=== PATIENT | male | born 2005 | race Caucasian/White ===

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

== ENCOUNTER 2023-08-18 10:16 | Day surgery (SDC) | payer BC ==
[2023-08-18] MEDS ORDERED: Acetaminophen 325 MG TAB ONE (11:43)
[2023-08-18] MEDS: Acetaminophen 325 MG TAB PO SCH (11:53)
[2023-08-18 17:04] VITALS: BP 119/69; TEMP 98.3
== END 2023-08-18 17:04 | disposition home or self-care (01) ==
LOC: ONC/OP 10:16
PROVIDERS: ATTEND Physician Assistant Medical
DX: D64.9 Anemia, unspecified (principal)
CPT/HCPCS: 36430; 86850; 86900; 86901; P9016

== ENCOUNTER 2023-12-12 10:03 | Day surgery (SDC) | payer BC ==
[2023-12-12 11:07] VITALS: BP 129/64; TEMP 98.1
[2023-12-12] MEDS: DEXTROSE 5% IV SCH (11:08)
[2023-12-12] MEDS: WATER IV SCH (11:08)
[2023-12-12] MEDS: [UNRECOGNIZED DRUG - OTHER] IV SCH (11:08)
== END 2023-12-12 12:16 | disposition home or self-care (01) ==
LOC: ONC/OP 10:03
PROVIDERS: ATTEND Internal Medicine Gastroenterology
DX: K51.90 Ulcerative colitis, unspecified, without complications (principal)
CPT/HCPCS: 96413; C9168; J7070

== ENCOUNTER 2024-01-09 10:05 | Day surgery (SDC) | payer BC ==
[2024-01-09] MEDS: WATER IV SCH (10:45)
[2024-01-09] MEDS: DEXTROSE 5% IV SCH (10:45)
[2024-01-09] MEDS: [UNRECOGNIZED DRUG - OTHER] IV SCH (10:45)
[2024-01-09 10:59] VITALS: BP 131/80; TEMP 98.1
== END 2024-01-09 11:33 | disposition home or self-care (01) ==
LOC: ONC/OP 10:05
PROVIDERS: ATTEND Internal Medicine Gastroenterology
DX: K51.90 Ulcerative colitis, unspecified, without complications (principal)
CPT/HCPCS: 96413; C9168; J7070